=== PATIENT | female | born 1970 | race Caucasian/White ===

== ENCOUNTER 2019-05-14 23:08 | Emergency (ER) | payer SELFPAY ==
[~2019-05-14] VITALS: Ht 142.2 cm; Wt 72.7 kg
[2019-05-14 23:09] VITALS: BP 136/77
[2019-05-14] MEDS ORDERED: HYDR5CR TOP (23:39)
== END 2019-05-14 23:47 | disposition home or self-care (01) ==
LOC: M ED 23:08
DX: H60.542 Acute eczematoid otitis externa, left ear (principal); L30.9 Dermatitis, unspecified